=== PATIENT | male | born 1960 | race Caucasian/White ===

== ENCOUNTER 2017-08-31 18:11 | Emergency (ER) | payer MEDICAID, OTHER ==
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
[2017-09-01 01:18] VITALS: BP 120/85
--- NOTE | 2017-09-01 16:01 | CT ---
EXAM DATE: 08/31/17 PATIENT'S AGE: 57 Patient: CAMELIA CLAIRE Facility: [place], [place] Site . Site : [id number] Study: CT Spine Cervical [id number]/[id number] 7:51:41 PM Ordering Physician: Gracie Tipton Final Report: INDICATION: Neck injury. TECHNIQUE: CT cervical spine without contrast. COMPARISON: None FINDINGS: Vertebrae: Alignment is normal. There is osseous fusion of the C5, C6, and C6 vertebral bodies. No sign of acute fracture. Prominent anterior marginal osteophytes are present at C4 and C5. Discs and facet joints: Disc spaces outside of the fused segment are unremarkable. There is moderate diffuse facet joint spondylosis. Extraspinal findings: Prevertebral soft tissues, visualized airway, and visualized lungs are unremarkable. IMPRESSION: No sign of acute injury in the cervical spine. Please note that all CT scans at this facility use dose modulation, iterative reconstruction, and/or weight-based dosing when appropriate to reduce radiation dose to as low as reasonably achievable. Dictated by Rico Kothari MD @ Aug 31 2017 8:10PM (Electronic Signature) Report Signed by Proxy. [id number]
== END 2017-08-31 20:42 | disposition home or self-care (01) ==
LOC: MW.ED 18:11
DX: S16.1XXA Strain of muscle, fascia and tendon at neck level, initial encounter (principal); R20.2 Paresthesia of skin; Z98.1 Arthrodesis status; Z88.5 Allergy status to narcotic agent; V43.62XA Car passenger injured in collision with other type car in traffic accident, initial encounter
CPT/HCPCS: 72125; 72125-26; 99283-25; 99284